=== PATIENT | female | born 1935 | race Caucasian/White ===

== ENCOUNTER → 2018-06-26 | Emergency (ER) | payer OTHER ==
[~2018-06-26] VITALS: Ht 160 cm; Wt 62.1 kg
== END | disposition home or self-care (01) ==
LOC: ER 17:05
DX: M51.36 Other intervertebral disc degeneration, lumbar region (principal); M54.5 Low back pain

== ENCOUNTER 2018-07-22 18:53 | Emergency (ER) | payer OTHER ==
[~2018-07-22] VITALS: Ht 160 cm; Wt 62.1 kg
[2018-07-22] MEDS ORDERED: NEURONTIN300 MG (19:19)
[2018-07-22] MEDS ORDERED: COZAAR25 MG (19:19)
[2018-07-22] MEDS ORDERED: ANTIVER (19:20)
== END 2018-07-22 21:13 | disposition home or self-care (01) ==
LOC: ER 18:53
DX: S00.03XA Contusion of scalp, initial encounter (principal); W18.09XA Striking against other object with subsequent fall, initial encounter; Y93.89 Activity, other specified; Y92.018 Other place in single-family (private) house as the place of occurrence of the external cause; Y99.8 Other external cause status

== ENCOUNTER 2018-12-13 09:43 | Outpatient (CLI) | payer OTHER ==
[~2018-12-13 09:43] MED LIST: ANTIVER; COZAAR25 MG; NEURONTIN300 MG
== END 2018-12-13 09:46 | disposition home or self-care (01) ==
LOC: MRI 09:43
DX: F45.0 Somatization disorder (principal); G13.0 Paraneoplastic neuromyopathy and neuropathy; G30.8 Other Alzheimer's disease
CPT/HCPCS: 70551

== ENCOUNTER 2024-09-13 10:59 | Emergency (ER) | payer OTHER ==
[~2024-09-13] VITALS: Ht 152.4 cm; Wt 54.4 kg
[2024-09-13 12:46] LABS: PH,URINE 6.5 (5.0-8.0); URINE APPEARANCE Clear; URINE BILIRRUBIN Negative (NEGATIVE); URINE BLOOD Negative; URINE COLOR Yellow; URINE GLUCOSE Negative (NEGATIVE); URINE KETONE Negative (NEGATIVE); URINE LEUKOCYTE Trace; URINE NITRATE Negative; URINE PROTEIN 30 (NEGATIVE); URINE UROBILINOGEN 0.2 E.U./dl
[2024-09-13 13:00] LABS: URINE BACTERIA 72.2 uL (0.0-1933); URINE EPITHELIAL CELLS 4.4 uL (0.0-38.8); URINE RBC 2.3 uL (0.0-20.8); URINE WBC 3.6 uL (0.0-23.2)
[2024-09-13 13:17] LABS: ALBUMIN 4.3 gm/dL (3.4-5.0); BILIRUBIN TOTAL 0.38 mg/dL (0.3-1.2); CALCIUM 9.5 mg/dL (8.5-10.1); CREATININE SERUM 0.86 mg/dL (0.55-1.02); GFR 62.42; GLOBULINA 4.2 G/DL (2.4-3.5); POTASSIUM 3.83 mEq/L (3.5-5.1); TOTAL PROTEIN 8.5 gm/dL (6.4-8.2)
[2024-09-13 13:18] LABS: HEMATOCRIT 37.2 % (36.0-45.00); HEMOGLOBIN 12.4 g/dL (12.0-15.00); MEAN CELL VOLUME 94.1 fL (80.00-100.00); MEAN CORPUSCULAR HEMOGLOBIN 31.3 pg (27.00-32.0); MEAN CORPUSCULAR HGB CONC 33.3 g/dl (32.0-36.0); PLATELET COUNT 391 K/uL (150-450); RED BLOOD COUNT 3.95 M/uL (4.00-6.00); RED CELL DISTRIBUTION WIDTH 13.2 % (11.5-14.5)
== END 2024-09-13 15:58 | disposition home or self-care (01) ==
LOC: ER 11:02
PROVIDERS: Emergency Medicine
DX: R53.81 Other malaise (principal); R29.898 Other symptoms and signs involving the musculoskeletal system; I10 Essential (primary) hypertension

== ENCOUNTER 2024-09-20 07:54 | Outpatient (CLI) | payer OTHER | END 2024-09-20 07:58 | disposition home or self-care (01) | LOC: MRI 07:54 | DX: M54.40 Lumbago with sciatica, unspecified side (principal) | CPT/HCPCS: 72148 ==